=== PATIENT | male | born 1995 | race Caucasian/White ===

== ENCOUNTER 2020-10-29 23:45 | Emergency (ER) | payer OTHER ==
[~2020-10-29] VITALS: Ht 172.7 cm; Wt 72.6 kg
[2020-10-30] MEDS ORDERED: AMOX1TAB5 PO (01:30)
[2020-10-30] MEDS ORDERED: INTESTINEX680 M1 PO (01:30)
[2020-10-30] MEDS ORDERED: ACETAMINOPHEN650 M2 (05:52)
== END 2020-10-30 01:42 | disposition home or self-care (01) ==
LOC: ER 23:45
DX: S01.82XA Laceration with foreign body of other part of head, initial encounter (principal); W45.8XXA Other foreign body or object entering through skin, initial encounter; Y93.67 Activity, basketball; Y92.310 Basketball court as the place of occurrence of the external cause; Y99.8 Other external cause status